=== PATIENT | female | born 1955 | race American Indian/Alaskan Native ===

== ENCOUNTER 2016-06-25 10:41 | Outpatient (CLI) | payer MEDICARE ==
[2016-06-25 10:58] LABS: Basophils % (Auto) 1.5 % (0.0-1.8); Eosinophils % (Auto) 2.8 % (0.0-4.3); Hematocrit 37.2 % (30.3-42.9); Mean Corpuscular HGB Conc 32 % (30-34); Mean Corpuscular Volume 75 fl (79-97); Platelet Count 341 K/mm3 (140-440); Red Blood Count 4.99 M/mm3 (3.65-5.03); Red Cell Distribution Width 15.6 % (13.2-15.2)
[2016-06-25 11:02] LABS: Mean Corpuscular Hemoglobin 24 pg (28-32)
[2016-06-25 11:49] LABS: Alanine Aminotransferase 24 units/L (7-56); Alkaline Phosphatase 104 units/L (35-129); Anion Gap 17 mmol/L; Bilirubin,Total 0.2 mg/dL (0.1-1.2); Blood Urea Nitrogen 11 mg/dL (7-17); Calcium 8.8 mg/dL (8.4-10.2); Carbon Dioxide 24 mmol/L (22-30); Chloride 104.1 mmol/L (98-107); Glucose 110 mg/dL (65-100); Potassium 4.1 mmol/L (3.6-5.0); Sodium 141 mmol/L (137-145); Total Protein 7.8 g/dL (6.3-8.2)
[2016-06-25 12:51] LABS: Albumin/Globulin Ratio 1.1 %; Cholesterol 211 mg/dL (50-199); HDL Cholesterol 42 mg/dL (40-59); LDL Cholesterol,Direct 149 mg/dL (50-130); Triglycerides 101 mg/dL (2-149)
== END 2016-06-25 10:42 | disposition home or self-care (01) ==
LOC: LAB 10:41
PROVIDERS: ATTEND Psychiatry & Neurology Psychiatry
DX: F20.1 Disorganized schizophrenia (principal); E66.3 Overweight
CPT/HCPCS: 36415; 80053; 80061; 83036; 84146; 84439; 84443; 85025